=== PATIENT | female | born 1975 | race Caucasian/White ===

== ENCOUNTER 2017-12-26 17:08 | Observation (INO) | payer OTHER ==
[2017-12-26 17:08] VITALS: BMI 35.2
[2017-12-26 17:39] LABS: BASO # 0.04 K/mm3 (0.0-2.0); BASO % 0.5 % (0.0-3.0); EOS # 0.1 (0.0-0.7); EOS % 1.3 % (1.5-5.0); GRAN # 4.37 (1.4-6.5); GRAN % 57.2 % (50.0-68.0); HEMOGLOBIN 10.8 g/dL (12.0-16.0); LYMPH # 2.5 (1.2-3.4); LYMPH % 32.9 % (22.0-35.0); MEAN CELL VOLUME 76.8 fl (80.0-105.0); MEAN CORPUSCULAR HEMOGLOBIN 23.4 pg (25.0-35.0); MEAN CORPUSCULAR HGB CONC 30.4 g/dl (31.0-37.0); MEAN PLATELET VOLUME 10.4 fl (7.0-11.0); MONO # 0.6 (0.1-0.6); MONO % 8.1 % (1.0-6.0); RBC 4.62 10^6/uL (3.5-6.1); RED CELL DISTRIBUTION WIDTH 16.4 % (11.5-14.5); WHITE BLOOD COUNT 7.6 10^3/ul (4.5-11.0)
[2017-12-26 17:51] LABS: ALB/GLOB RATIO 1.5 (1.1-1.8); ALBUMIN 4.5 g/dL (3.0-4.8); ALT/SGPT 23 U/L (7-56); AST/SGOT 21 U/L (14-36); BLOOD UREA NITROGEN 10 mg/dL (7-21); CALCIUM 10.2 mg/dL (8.4-10.5); GFR AFRICAN-AMERICAN > 60; GFR NON-AFRICAN AMERICAN > 60
[2017-12-26 18:15] LABS: TROPONIN I < 0.01 ng/mL
--- NOTE | 2017-12-26 19:04 | ED PDOC ---
Arrival/HPI - General Historian: Family <Tye Rasheed - Last Filed: 12/26/17 19:39> <Celso Gee - Last Filed: 12/26/17 22:15> - General Chief Complaint: Syncope Time Seen by Provider: 12/26/17 17:12 - History of Present Illness Narrative History of Present Illness (Text): 12/26/17 18:59 Patient is a 42F with a pmh of HTN, HLD comes to the ED after being found outside of the hospital unresponsive. Today the patient had 4 episodes of syncope which prompted her to come to the ED. She had been at home with her daughter today and she reportedly passed out 3 times. She appeared confused and crying after each event. They lasted apporxmently 5-15m per event. Yesterday her daughter reports that she would be staring at her with a blank stare and later not recalling that they were talking. Patient denies any chest pain, SOB, fever, chills. (Tye Rasheed) Past Medical History - Past History Past History: No Previous - Infectious Disease Hx of Infectious Diseases: None - Tetanus Immunization Tetanus Immunization: Unknown - Cardiac Hx Hypertension: Yes - Pulmonary Hx Respiratory Disorders: No - Neurological Hx Neurological Disorder: No - HEENT Hx HEENT Disorder: No - Renal Hx Renal Disorder: No - Endocrine/Metabolic Hx Endocrine Disorders: No - Hematological/Oncological Hx Anemia: Yes - Integumentary Hx Dermatological Disorder: No - Musculoskeletal/Rheumatological Hx Falls: Yes - Gastrointestinal Hx Gastrointestinal Disorders: No Other/Comment: H pilory - Genitourinary/Gynecological Hx Genitourinary Disorders: No - Psychiatric Hx Psychophysiologic Disorder: No Hx Substance Use: No - Past Surgical History Past Surgical History: No Previous - Surgical History Hx Section: Yes - Anesthesia Hx Anesthesia: Yes Hx Anesthesia Reactions: No Hx Malignant Hyperthermia: No - Suicidal Assessment Feels Threatened In Home Enviroment: No <Tye Rasheed - Last Filed: 12/26/17 19:39> Family/Social History Family/Social History: Unknown Family HX Smoking Status: Never Smoked Hx Alcohol Use: No Hx Substance Use: No Hx Substance Use Treatment: No <Tye Rasheed - Last Filed: 12/26/17 19:39> Allergies/Home Meds <Tye Rasheed - Last Filed: 12/26/17 19:39> <Celso Gee - Last Filed: 12/26/17 22:15> Allergies/Adverse Reactions: Allergies No Known Allergies Allergy (Verified 12/26/17 17:16) Home Medications: Home Meds Medication Instructions Recorded Confirmed No Known Home Med 12/26/17 12/26/17 Review of Systems - Review of Systems Constitutional: Normal Eyes: Normal ENT: Normal Respiratory: Normal Cardiovascular: Syncope Gastrointestinal: Normal Genitourinary Female: Normal Musculoskeletal: Normal Skin: Normal Neurological: Normal Endocrine: Normal Hemo/Lymphatic: Normal Psychiatric: Normal <Tye Rasheed - Last Filed: 12/26/17 19:39> Physical Exam Temperature: Afebrile Blood Pressure: Normal Pulse: Tachycardic Respiratory Rate: Normal Finger Stick Blood Glucose: 92 <Tye Rasheed - Last Filed: 12/26/17 19:39> Vital Signs Pulse Resp BP Pulse Ox 12/26/17 17:12 100 H 18 143/94 H 100 Medical Decision Making <Tye Rasheed - Last Filed: 12/26/17 19:39> <Celso Gee - Last Filed: 12/26/17 22:15> ED Course and Treatment: 12/26/17 19:39 42F with multiple episodes of syncope, possible seizure etiology * ekg * cxr * CT head w/o contrast (Tye Rasheed) 12/26/17 22:00 EKG: Ordered, reviewed, and independently interpreted the EKG. Rate : 89 BPM Rhythm : NSR Interpretation : Normal intervals, normal axis (Celso Gee) - Lab Interpretations Lab Results: 12/26/17 17:27 12/26/17 17:27 Lab Results 12/26/17 19:30: Urine Opiates Screen Negative, Urine Methadone Screen Negative, Ur Barbiturates Screen Negative, Ur Phencyclidine Scrn Negative, Ur Amphetamines Screen Negative, U Benzodiazepines Scrn Negative, U Oth Cocaine Metabols Negative, U Cannabinoids Screen Negative 12/26/17 17:27: WBC 7.6 D, RBC 4.62, Hgb 10.8 L, Hct 35.5 L, MCV 76.8 L, MCH 23.4 L, MCHC 30.4 L, RDW 16.4 H, Plt Count 405, MPV 10.4, Gran % 57.2, Lymph % ( Auto) 32.9, Gentry % (Auto) 8.1 H, Eos % (Auto) 1.3 L, Baso % (Auto) 0.5, Gran # 4.37, Lymph # (Auto) 2.5, Gentry # (Auto) 0.6, Eos # (Auto) 0.1, Baso # (Auto) 0.04 12/26/17 17:27: Sodium 144, Potassium 3.7, Chloride 105, Carbon Dioxide 28, Anion Gap 14, BUN 10, Creatinine 0.5 L, Est GFR ( Amer) > 60, Est GFR ( Non-Af Amer) > 60, Random Glucose 97, Calcium 10.2, Magnesium 2.2, Total Bilirubin 0.5, AST 21, ALT 23, Alkaline Phosphatase 54, Lactate Dehydrogenase 457, Total Creatine Kinase 47, Troponin I < 0.01, Total Protein 7.5, Albumin 4.5 , Globulin 3.0, Albumin/Globulin Ratio 1.5, Prolactin Pending - RAD Interpretation Radiology Orders: 12/26/17 17:23 HEAD W/O CONTRAST [CT] Stat 12/26/17 20:06 HEAD W/CONTRAST [CT] Stat - PA / SET UP MACHINIST / Resident Statement MILLY has reviewed & agrees with the documentation as recorded. MILLY has examined the patient and agrees with the treatment plan. <Tye Rasheed - Last Filed: 12/26/17 19:39> - PA / SET UP MACHINIST / Resident Statement MILLY has reviewed & agrees with the documentation as recorded. <Celso Gee - Last Filed: 12/26/17 22:15> Disposition/Present on Arrival - Present on Arrival Any Indicators Present on Arrival: No History of DVT/PE: No History of Uncontrolled Diabetes: No Urinary Catheter: No History of Decub. Ulcer: No History Surgical Site Infection Following: None <Tye Rasheed - Last Filed: 12/26/17 19:39> - Disposition Have Diagnosis and Disposition been Completed?: Yes Disposition Time: 22:14 Patient Plan: Admission, Telemetry <Celso Gee - Last Filed: 12/26/17 22:15> - Disposition Diagnosis: Syncope, Near syncope Disposition: HOSPITALIZED Condition: FAIR Discharge Instructions (ExitCare): Syncope (ED) Referrals: Cliff Jimenez MD [Primary Care Provider] - Follow up with primary Forms: [employer] (Portuguese)
--- NOTE | 2017-12-26 19:16 | CARD ---
APPROVED REPORT EKG Measurement Heart [id number] ID [id number] <Conclusion> Normal sinus rhythm Normal ECG
[2017-12-26 20:09] LABS: BARBITURATES, UR NEGATIVE (NEGATIVE); BENZODIAZEPINES, UR NEGATIVE (NEGATIVE); OPIATES, UR NEGATIVE (NEGATIVE); PHENCYCLIDINE, UR NEGATIVE (NEGATIVE)
[2017-12-26] MEDS ORDERED: Iohexol 350 MG/100 ML VIAL ONE (20:48)
--- NOTE | 2017-12-26 20:50 | CT ---
EXAM: CT Head Without Intravenous Contrast EXAM DATE/TIME: 12/26/2017 5:23 PM CLINICAL HISTORY: The patient age is 42 years old and is female; Signs and symptoms; Dizziness; Additional info: Syncope Facility exam id and description: Ct heads head w/o contrast TECHNIQUE: Axial computed tomography images of the head/brain without intravenous contrast. All CT scans at this facility use one or more dose reduction techniques, viz.: automated exposure control; ma/kV adjustment per patient size (including targeted exams where dose is matched to indication; i.e. head); or iterative reconstruction technique. Coronal and sagittal reformatted images were created and reviewed. COMPARISON: No relevant prior studies available. FINDINGS: Brain: There is mild atrophy of the frontal sulci. The white-wilkinson differentiation is preserved demonstrating no acute territorial type infarct. No acute intracranial hemorrhage is seen. Artifact limits evaluation of the base of the brain. Midline shift: There is no midline shift. Ventricles: There is a small cavum septum pellucidum variant. No ventriculomegaly. Bones/joints: The calvarium demonstrates no evidence for a depressed fracture. Soft tissues: No acute abnormality. Sinuses: A small mucous retention cyst or polyp is visualized within the right frontal sinus. Mastoid air cells: No mastoid effusion. IMPRESSION: 1. No acute intracranial abnormality. 2. There is mild atrophy of the frontal sulci. 3. Incidental/non-acute findings are described above.
--- NOTE | 2017-12-26 22:56 | CT ---
EXAM: CT Head With Intravenous Contrast EXAM DATE/TIME: 12/26/2017 8:06 PM CLINICAL HISTORY: The patient age is 42 years old and is female; Signs and symptoms; Altered mental status/memory loss and dizziness; Additional info: AMS, syncope Facility exam id and description: Ct headc head w/contrast TECHNIQUE: Axial computed tomography images of the head/brain with intravenous contrast. All CT scans at this facility use one or more dose reduction techniques, viz.: automated exposure control; ma/kV adjustment per patient size (including targeted exams where dose is matched to indication; i.e. head); or iterative reconstruction technique. Coronal and sagittal reformatted images were created and reviewed. CONTRAST: 94 mL of omni 350 administered intravenously. COMPARISON: CT - HEAD W/O CONTRAST 2017-12-26 19:42 FINDINGS: Brain: 2 linear foci of enhancement are identified within the right frontal lobe, consistent with prominent draining veins or developmental venous anomalies. There is mild atrophy of the frontal sulci. The white-wilkinson differentiation is preserved demonstrating no acute territorial type infarct. No additional abnormal enhancing intracranial mass is visualized. Evaluation for hemorrhage is limited by the presence of intravenous contrast. Ventricles: There is a small cavum septum pellucidum variant. No ventriculomegaly. Bones/joints: No acute fracture. Soft tissues: No acute abnormality. Sinuses: A small mucous retention cyst or polyp is visualized within the right frontal sinus. Mastoid air cells: No mastoid effusion. IMPRESSION: 1. 2 linear foci of enhancement are identified within the right frontal lobe, consistent with prominent draining veins or developmental venous anomalies. 2. Incidental/non-acute findings are described above. 3. If further evaluation is clinically indicated, an MRI of the brain is recommended.
--- NOTE | 2017-12-27 00:18 | CP.PCM.HP ---
Addendum entered and electronically signed by Tony Redmond DO 12/27/17 00:55 : - CT without contrast showed no acute intracranial abnormality, mild atrophy of the frontal sulci - CT with contrast showed 2 linear foci of enhancement are identified within the right frontal lobe, consistent with prominent draining veins or developmental venous anomalies. Original Note: <Tony Redmond - Last Filed: 12/27/17 00:06> History of Present Illness - History of Present Illness History of Present Illness: CC: syncope Pt is a 42 yo F with PMH of HLD presents to ED due multiple syncopal episodes on day of admission. Pt's daughter is at bedside to provid history as pt is Turkish speaking. Daughter states that she witnessed her mother have 4 syncopal episodes at home today. During those episodes, the patient was either caught by her daughter or was in bed, thus no fall or trauma took place. Duration of syncopal episodes ranged from 5-30 minutes. Daughter stated that on 1 or 2 of the syncopal episodes she thinks she saw her mother seizing, but is unsure. Pt denied any tongue biting or loss of bladder/bowel function. Pt states that she experienced blurred vision after each episode and things appeared white. Daughter also states that yesterday her mother had a period where she appeared to be staring blankly for about 5 minutes. Afterwards, the patient had no recollection of the event. Pt had another syncopal episode outside of the hospital prior to arrival and another syncopal episode while the ED. These events were witnessed and no seizure activity was noted. After each event, patient was confused and emotional/crying. Pt denied CP, SOB, n/v/d, abdominal pain, fever, chills, PAZ, or gait imbalance. PMD: Ghobraiel PMH: HLD Surg: Denied All: Denied FHx: DM, HTN, HLD, CVA SH: Denied tobacco, EtOH, and illicit drug use Present on Admission - Present on Admission Any Indicators Present on Admission: No Review of Systems - Review of Systems Review of Systems: 12 point ROS reviewed and is negative other than what is stated in HPI. Past Patient History - Infectious Disease Hx of Infectious Diseases: None - Tetanus Immunizations Tetanus Immunization: Unknown - Past Medical History & Family History Past Medical History?: Yes - Past Social History Smoking Status: Never Smoked - CARDIAC Hx Hypertension: Yes - PULMONARY Hx Respiratory Disorders: No - NEUROLOGICAL Hx Neurological Disorder: No - HEENT Hx HEENT Problems: No - RENAL Hx Chronic Kidney Disease: No - ENDOCRINE/METABOLIC Hx Endocrine Disorders: No - HEMATOLOGICAL/ONCOLOGICAL Hx Anemia: Yes - INTEGUMENTARY Hx Dermatological Problems: No - MUSCULOSKELETAL/RHEUMATOLOGICAL Hx Falls: Yes - GASTROINTESTINAL Hx Gastrointestinal Disorders: No Other/Comment: H pilory - GENITOURINARY/GYNECOLOGICAL Hx Genitourinary Disorders: No - PSYCHIATRIC Hx Psychophysiologic Disorder: No Hx Substance Use: No - SURGICAL HISTORY Hx Section: Yes - ANESTHESIA Hx Anesthesia: Yes Hx Anesthesia Reactions: No Hx Malignant Hyperthermia: No Meds Allergies/Adverse Reactions: Allergies Allergy/AdvReac Type Severity Reaction Status Date / Time No Known Allergies Allergy Verified 12/26/17 17:16 Physical Exam - Constitutional Appears: No Acute Distress - Head Exam Head Exam: NORMAL INSPECTION - Eye Exam Eye Exam: Normal appearance Pupil Exam: NORMAL ACCOMODATION - ENT Exam ENT Exam: Mucous Membranes Moist - Neck Exam Neck exam: Positive for: Normal Inspection - Respiratory Exam Respiratory Exam: Clear to Auscultation Bilateral. absent: Rales, Rhonchi, Wheezes - Cardiovascular Exam Cardiovascular Exam: RRR, +S1, +S2. absent: Diastolic murmur, Gallop, Rubs, Systolic Murmur - GI/Abdominal Exam GI & Abdominal Exam: Soft. absent: Guarding, Rebound, Tenderness - Extremities Exam Extremities exam: Positive for: normal inspection - Back Exam Back exam: NORMAL INSPECTION - Neurological Exam Neurological exam: Alert, CN II-XII Intact, Oriented x3, Reflexes Normal Additional comments: Romberg positive. Pronator drift negative. Dysdiadodyskinesia negative. No ataxia noted on ecvmzx-uh-yfko test. Addis-hallpike negative. - Psychiatric Exam Psychiatric exam: Normal Affect, Normal Mood - Skin Skin Exam: Dry, Intact, Normal Color, Warm Results - Vital Signs Recent Vital Signs: Last Vital Signs Temp Pulse 73 12/26/17 23:53 Resp 17 12/26/17 23:53 BP 108/66 12/26/17 23:53 Pulse Ox 100 12/26/17 23:53 - Labs Result Diagrams: 12/26/17 17:27 12/26/17 17:27 Assessment & Plan - Assessment and Plan (Free Text) Assessment: 42 yo F with PMH of HLD admitted for multiple syncopal episodes. Plan: 1. Syncope - Questionable seizure vs. vasovagal vs. cardiac vs. psychogenic - CT without contrast showed - CT with contrast showed - Orthostatics negative (Supine 111/70, Sitting 120/81, Standing 122/84) - UDS negative - Troponin negative x1, will trend x2 - Brain MRI ordered - Carotid US ordered - Echo ordered - EEG ordered - Zofran for nausea - Neurochecks - Fall and aspiration precautions - Neuro consulted - Cardio consulted GI/DVT PPx - Protonix - SCDs Pt seen and discussed in detail with Dr. Gray. Jay Redmond, PGY1 <Hero Gray - Last Filed: 12/27/17 02:44> Results - Vital Signs Recent Vital Signs: Last Vital Signs Temp 98.2 F 12/27/17 01:11 Pulse 79 12/27/17 01:24 Resp 18 12/27/17 01:11 BP 121/74 12/27/17 01:11 Pulse Ox 100 12/27/17 00:48 - Labs Result Diagrams: 12/26/17 17:27 12/26/17 17:27 Labs: Laboratory Results - last 24 hr 12/27/17 00:30 Troponin I < 0.01 Attending/Attestation - Attestation I have personally seen and examined this patient.: Yes I have fully participated in the care of the patient.: Yes I have reviewed all pertinent clinical information: Yes Notes (Text): 12/27/17 02:43 Patient was seen when she was in room # 375-02. History obtained with help of daughter Nelia. Agree with history, physical examination, assessment and plan. Following should be noted. Syncope. Possible seizure. Obesity. History of . History of difficulty in hearing in both ears on and off. History of sinusitits. History of seasonal allergies. History of anemia. History of menorrhagia. History of urinary tract infection x 4. History of bilateral lower abdominal pain for one year. History of hemorrhoids. History of contipation. History of headaches. Family history of diabetes mellitus. Family history of CVA. Family history of HLD. Family history of HTN.
[2017-12-27] MEDS: Pantoprazole 40 mg EC Tab PO SCH (05:41)
[2017-12-27 07:08] LABS: HEMOGLOBIN 9.1 g/dL (12.0-16.0); MEAN CELL VOLUME 76.7 fl (80.0-105.0); MEAN CORPUSCULAR HEMOGLOBIN 23.3 pg (25.0-35.0); MEAN CORPUSCULAR HGB CONC 30.3 g/dl (31.0-37.0); MEAN PLATELET VOLUME 9.4 fl (7.0-11.0); RBC 3.91 10^6/uL (3.5-6.1); RED CELL DISTRIBUTION WIDTH 16.5 % (11.5-14.5); WHITE BLOOD COUNT 5.8 10^3/ul (4.5-11.0)
[2017-12-27 07:29] LABS: TROPONIN I < 0.01 ng/mL
[2017-12-27 07:35] LABS: ALB/GLOB RATIO 1.4 (1.1-1.8); ALBUMIN 3.7 g/dL (3.0-4.8); ALT/SGPT 22 U/L (7-56); AST/SGOT 31 U/L (14-36); BLOOD UREA NITROGEN 6 mg/dL (7-21); CALCIUM 9.4 mg/dL (8.4-10.5); GFR AFRICAN-AMERICAN > 60; GFR NON-AFRICAN AMERICAN > 60
[2017-12-27] MEDS ORDERED: Gadodiamide 287 MG/ML VIAL (15ML) IV ONE (08:33)
--- NOTE | 2017-12-27 09:06 | MRI ---
PROCEDURE: MRI BRAIN WITH AND WITHOUT CONTRAST HISTORY: syncope, questionable seizure COMPARISON: None. TECHNIQUE: Multiplanar, multisequence MR images of the brain were obtained with (Omniscan 15 cc intravenous) and without intravenous contrast enhancement. FINDINGS: HEMORRHAGE: None DWI: No evidence of an acute or early subacute infarction. BRAIN PARENCHYMA: Intrinsic signal throughout the wilkinson and white matter structures above below the tentorium includes appears within normal limits including the brainstem. There is no mass effect, parenchymal edema or loss of the corticomedullary differentiation. Midline brain anatomy appears within normal limits including the corpus callosum, brainstem and craniocervical junction. There is a probable arachnoid cyst occupying the sella versus empty sella. ENHANCEMENT: No abnormal intracranial enhancement. VENTRICLES: Unremarkable. No hydrocephalus. CRANIUM: Unremarkable. ORBITS: Grossly unremarkable. PARANASAL SINUSES/MASTOIDS: Limited but multifocal mucosal inflammatory changes bilateral ethmoid air cells. VASCULAR SYSTEM: Skull base flow voids intact. OTHER FINDINGS: None . IMPRESSION: 1. Normal signal intensity is appreciate throughout the wilkinson and white matter structures above below the tentorium including throughout the brainstem. No abnormal intracranial enhancement. 2. No evidence to suggest mesial temporal sclerosis bilaterally. 3. Sella arachnoid cyst versus empty sella.
[2017-12-27 11:58] LABS: PROLACTIN 21.4 ng/mL (3.0-18.9)
[2017-12-27 12:14] LABS: IRON 27 ug/dL (45-180)
[2017-12-27 12:24] LABS: % IRON SATURATION 6 % (20-55); TOTAL IRON BINDING CAPACITY 421 ug/dL (265-497)
--- NOTE | 2017-12-27 12:39 | CP.PCM.CON ---
History of Present Illness - History of Present Illness History of Present Illness: Neurology Consultation Note: Mrs. Todd is a 42-year-old woman with a past medical history of HLD, who was brought in by her daughter for multiple syncopal epidoses associated with abnormal behavior. The daughter states that she witnessed her mother have 4 syncopal episodes at home, and she continued to be confused after these events. She was caught be her daughter and did not injure herself. According to the family, she has been having events like this, but she usually returns to normal right away, recently, she takes longer. She has had a headache, and complains of blurred vision after each episode along with white/hazy vision. She had some episodes with shaking as well that were concerning for possible seizure. Review of Systems - Review of Systems All systems: reviewed and no additional remarkable complaints except Past Patient History - Infectious Disease Hx of Infectious Diseases: None - Tetanus Immunizations Tetanus Immunization: Unknown - Past Medical History & Family History Past Medical History?: Yes - Past Social History Smoking Status: Never Smoked - CARDIAC Hx Cardiac Disorders: Yes Hx Hypercholesterolemia: Yes Hx Hypertension: Yes Hx Peripheral Vascular Disease: No - PULMONARY Hx Respiratory Disorders: No (denies) - NEUROLOGICAL Hx Neurological Disorder: Yes (syncope) - HEENT Hx HEENT Problems: No (denies) - RENAL Hx Chronic Kidney Disease: No (denies) - ENDOCRINE/METABOLIC Hx Endocrine Disorders: No (denies) - HEMATOLOGICAL/ONCOLOGICAL Hx Blood Disorders: Yes Hx Anemia: Yes - INTEGUMENTARY Hx Dermatological Problems: No (denies) - MUSCULOSKELETAL/RHEUMATOLOGICAL Hx Falls: Yes - GASTROINTESTINAL Hx Gastrointestinal Disorders: No Other/Comment: H pilory - GENITOURINARY/GYNECOLOGICAL Hx Genitourinary Disorders: No (denies) - PSYCHIATRIC Hx Substance Use: No - SURGICAL HISTORY Hx Surgeries: Yes (c .section /tubal ligation) Other/Comment: - ANESTHESIA Hx Anesthesia: Yes Hx Anesthesia Reactions: No Hx Malignant Hyperthermia: No Meds Allergies/Adverse Reactions: Allergies Allergy/AdvReac Type Severity Reaction Status Date / Time No Known Allergies Allergy Verified 12/26/17 17:16 - Medications Medications: Current Medications Ondansetron HCl (Zofran Tab) 4 mg PO Q8H PRN PRN Reason: Nausea/Vomiting Pantoprazole Sodium (Protonix Ec Tab) 40 mg PO 0600 SCARLET Last Admin: 12/27/17 05:41 Dose: 40 mg Physical Exam - Constitutional Appears: Well - Head Exam Head Exam: ATRAUMATIC, NORMAL INSPECTION, NORMOCEPHALIC - Eye Exam Eye Exam: EOMI, Normal appearance, PERRL - Cardiovascular Exam Cardiovascular Exam: REGULAR RHYTHM - GI/Abdominal Exam GI & Abdominal Exam: Normal Bowel Sounds, Soft. absent: Tenderness - Rectal Exam Rectal Exam: Deferred - Neurological Exam Neurological exam: Alert, CN II-XII Intact, Normal Gait, Oriented x3, Reflexes Normal Additional comments: Left shoulder pain, weakness on hand billing supervisor. Results - Vital Signs Recent Vital Signs: Last Vital Signs Temp 99.4 F 12/27/17 06:00 Pulse 75 12/27/17 06:00 Resp 20 12/27/17 06:00 BP 102/59 L 12/27/17 06:00 Pulse Ox 99 12/27/17 06:00 - Labs Result Diagrams: 12/27/17 06:30 12/27/17 06:30 Labs: Laboratory Results - last 24 hr 12/27/17 12/27/17 12/27/17 00:30 06:30 06:30 WBC 5.8 D RBC 3.91 Hgb 9.1 L Hct 30.0 L MCV 76.7 L MCH 23.3 L MCHC 30.3 L RDW 16.5 H Plt Count 307 MPV 9.4 Sodium 141 Potassium 4.4 Chloride 109 H Carbon Dioxide 25 Anion Gap 12 BUN 6 L Creatinine 0.5 L Est GFR ( Amer) > 60 Est GFR (Non-Af Amer) > 60 Random Glucose 96 Calcium 9.4 Phosphorus 3.6 Magnesium 2.1 Iron TIBC % Saturation Total Bilirubin 0.2 AST 31 ALT 22 Alkaline Phosphatase 41 Troponin I < 0.01 < 0.01 Total Protein 6.3 Albumin 3.7 Globulin 2.6 Albumin/Globulin Ratio 1.4 12/27/17 12:00 WBC RBC Hgb Hct MCV MCH MCHC RDW Plt Count MPV Sodium Potassium Chloride Carbon Dioxide Anion Gap BUN Creatinine Est GFR ( Amer) Est GFR (Non-Af Amer) Random Glucose Calcium Phosphorus Magnesium Iron 27 L TIBC 421 % Saturation 6 L Total Bilirubin AST ALT Alkaline Phosphatase Troponin I Total Protein Albumin Globulin Albumin/Globulin Ratio Assessment & Plan (1) Syncope Assessment and Plan: Some of these events are concerning for seizure since she continues to be confused for a prolonged period of time and there were episodes of shaking. I recommend the followin. MRI brain with and without contrast 2. EEG awake and drowsy for 1 hours 3. Telemetry 4. If telemetry is normal, consult cardiology for loop recorder (Linq) 5. PT/OT eval 6. Fluids with NS at 100 mL/hr 7. Case management consult Thank you. Status: Acute Priority: High
[2017-12-27 16:53] LABS: FERRITIN 6.7 ng/mL
--- NOTE | 2017-12-27 16:59 | CARD ---
APPROVED REPORT EXAM: Two-dimensional and M-mode echocardiogram with Doppler and color Doppler. INDICATION Syncope 2D DIMENSIONS Left Atrium (2D)3.7 (1.6-4.0cm)IVSd0.8 (0.7-1.1cm) LVDd4.0 (3.9-5.9cm)PWd0.8 (0.7-1.1cm) LVDs2.7 (2.5-4.0cm)FS (%) 32.3 % LVEF (%)61.2 (>50%) M-Mode DIMENSIONS Aortic Root2.50 (2.2-3.7cm)Aortic Cusp Exc.1.60 (1.5-2.0cm) Aortic Valve AoV Peak Cvircaff756.0cm/sAoV VTI34.1cmAO Peak GR.12mmHg LVOT Peak Mjydqwoe710.0cm/sLVOT VTI26.30cmAO Mean GR.7mmHg Mitral Valve MV E Jagqdbxz90.8cm/sMV A Tcruxpnd88.7cm/sE/A ratio1.3 TDI Lateral E' Peak V18.40cm/sMedial E' Peak V7.21cm/sE/Lateral E'5.1 E/Medial E'13.0 Pulmonary Valve PV Peak Xdsuoxrq02.9cm/sPV Peak Grad.4mmHg Tricuspid Valve TR Peak Twbmzhps578ux/sRAP YOGZXOQT40nqAeTL Peak Gr.29mmHg [id number] LEFT VENTRICLE The left ventricle is normal size. There is normal left ventricular wall thickness. The left ventricular function is normal. The left ventricular ejection fraction is within the normal range. There is normal LV segmental wall motion. The left ventricular diastolic function is normal. RIGHT VENTRICLE The right ventricle is normal size. There is normal right ventricular wall thickness. The right ventricular systolic function is normal. ATRIA The left atrium size is normal. The right atrium size is normal. AORTIC VALVE The aortic valve is normal in structure. No aortic regurgitation is present. There is no aortic valvular stenosis. MITRAL VALVE The mitral valve is normal in structure. Mitral regurgitation is trace. TRICUSPID VALVE The tricuspid valve is normal in structure. There is mild tricuspid regurgitation. There is mild pulmonary hypertension. GREAT VESSELS The aortic root is normal in size. The IVC is normal in size and collapses >50% with inspiration. <Conclusion> The left ventricle is normal size. There is normal left ventricular wall thickness. The left ventricular function is normal. The left ventricular ejection fraction is within the normal range. There is normal LV segmental wall motion. The left ventricular diastolic function is normal. There is mild tricuspid regurgitation. There is mild pulmonary hypertension.
[2017-12-27 17:23] LABS: FOLATE > 20.0 ng/mL
[2017-12-27 20:00] LABS: URINE BILIRUBIN NEGATIVE (NEGATIVE); URINE BLOOD NEGATIVE (NEGATIVE); URINE GLUCOSE (UA) NEGATIVE (NEGATIVE); URINE LEUKOCYTE ESTERASE NEGATIVE Leu/uL (NEGATIVE); URINE PROTEIN NEGATIVE mg/dL (<30 mg/dL); URINE UROBILINOGEN 0.2 E.U./dL (<1 E.U./dL)
[2017-12-27 20:04] LABS: URINE COLOR STRAW (YELLOW)
[2017-12-27 20:05] LABS: URINE APPEARANCE SL CLOUDY (CLEAR); URINE BACTERIA MANY (NEG); URINE RBC NEGATIVE /hpf (0-2); URINE WBC 0 - 2 /hpf (0-6)
--- NOTE | 2017-12-27 20:31 | US ---
PROCEDURE: Bilateral carotid artery duplex ultrasound HISTORY: Carotid stenosis syncope PHYSICIAN(S): Raffi Mosquera MD. TECHNIQUE: Duplex sonography and color-flow Doppler were used to evaluate the carotid bifurcations and limited segments of the vertebral arteries bilaterally. FINDINGS: There is mild intimal-medial thickening noted at the carotid bifurcations bilaterally. The peak systolic velocity in the proximal right internal carotid artery is 102 cm/sec. This corresponds to a 0-19 percent proximal right ICA stenosis. Normal systolic velocities are noted in the proximal right external carotid artery. There is antegrade flow in the right vertebral artery. The peak systolic velocity in the proximal left internal carotid artery is 127 cm/sec. This corresponds to a 0-19 percent proximal left ICA stenosis. Normal systolic velocities are noted in the proximal left external carotid artery. There is antegrade flow in the left vertebral artery. IMPRESSION: 1. Bilateral 0-19 percent proximal ICA stenoses. 2. Antegrade flow in both vertebral arteries.
[2017-12-28] MEDS: Pantoprazole 40 mg EC Tab PO SCH (05:24)
[2017-12-28] MEDS ORDERED: Sodium Chloride 0.9% 500 ML IV STA (06:16)
[2017-12-28 07:03] LABS: HEMOGLOBIN 8.9 g/dL (12.0-16.0); MEAN CELL VOLUME 76.3 fl (80.0-105.0); MEAN CORPUSCULAR HEMOGLOBIN 23.5 pg (25.0-35.0); MEAN CORPUSCULAR HGB CONC 30.8 g/dl (31.0-37.0); MEAN PLATELET VOLUME 9.9 fl (7.0-11.0); RBC 3.79 10^6/uL (3.5-6.1); RED CELL DISTRIBUTION WIDTH 16.4 % (11.5-14.5); WHITE BLOOD COUNT 5.2 10^3/ul (4.5-11.0)
[2017-12-28 07:38] LABS: ALB/GLOB RATIO 1.4 (1.1-1.8); ALBUMIN 3.5 g/dL (3.0-4.8); ALT/SGPT 13 U/L (7-56); AST/SGOT 16 U/L (14-36); BLOOD UREA NITROGEN 12 mg/dL (7-21); CALCIUM 9.2 mg/dL (8.4-10.5); GFR AFRICAN-AMERICAN > 60; GFR NON-AFRICAN AMERICAN > 60
[2017-12-28] MEDS ORDERED: Sodium Chloride 0.9% 1,000 ML IV SCH (09:30)
[2017-12-28 11:26] LABS: PH,URINE 5.5 (4.7-8.0); URINE BILIRUBIN NEGATIVE (NEGATIVE); URINE BLOOD NEGATIVE (NEGATIVE); URINE GLUCOSE (UA) NEGATIVE (NEGATIVE); URINE LEUKOCYTE ESTERASE NEGATIVE Leu/uL (NEGATIVE); URINE PROTEIN NEGATIVE mg/dL (<30 mg/dL); URINE UROBILINOGEN 0.2 E.U./dL (<1 E.U./dL)
[2017-12-28 11:32] LABS: URINE APPEARANCE CLEAR (CLEAR); URINE COLOR YELLOW (YELLOW)
--- NOTE | 2017-12-28 12:46 | CP.PCM.PN ---
Subjective - Date & Time of Evaluation Date of Evaluation: 12/28/17 Time of Evaluation: 12:42 - Subjective Subjective: Ms. romero was seen and examined at the bedside. She is alert, oriented in all spheres. She denies any headache, dizziness, lightheadedness, blurred vision, diplopia, nausea, or vomiting. She is able to follow all commands. She further states of consuming very little amount of water for the past several months due to the environmental temp. very cold and for the past few weeks was fasting due to confucianist. Her blood pressure has been below 100 and currently on IVF. CTA of the head showed minimal 0-19 proximal stenoses of the bilateral ICA. MRI is unremarkable. EEG showed epileptiform activity in her temporal area. There was no untoward events overnight. Objective - Vital Signs/Intake and Output Vital Signs (last 24 hours): Temp Pulse Resp BP Pulse Ox 98.4 F 78 18 99/64 L 98 12/28/17 08:17 12/28/17 08:17 12/28/17 08:17 12/28/17 08:17 12/28/17 08:17 Intake and Output: 12/28/17 12/28/17 06:59 18:59 Intake Total 780 480 Output Total 780 Balance 0 480 - Medications Medications: Current Medications Sodium Chloride (Sodium Chloride 0.9%) 1,000 mls @ 100 mls/hr IV .Q10H [facility] Last Admin: 12/28/17 09:51 Dose: 100 mls/hr Ondansetron HCl (Zofran Tab) 4 mg PO Q8H PRN PRN Reason: Nausea/Vomiting Pantoprazole Sodium (Protonix Ec Tab) 40 mg PO 0600 [facility] Last Admin: 12/28/17 05:24 Dose: 40 mg - Labs Labs: 12/28/17 06:00 12/28/17 06:00 - Constitutional Appears: No Acute Distress - Head Exam Head Exam: NORMAL INSPECTION - Neurological Exam Neurological Exam: Alert, Awake, Oriented x3 Neuro motor strength exam: Left Upper Extremity: 5, Right Upper Extremity: 5, Left Lower Extremity: 5, Right Lower Extremity: 5 Additional comments: Alert, oriented x 3. Follow simple commands, Sensation is intact. Assessment and Plan (1) Near syncope Assessment & Plan: Case discussed with Dr. Glez, continue all current medical and physical therapy. Recommend to start on depakote 500 mg PO Q 12. Recommend to increase PO intake especially fluid. May discharge patient today with AED medication. Status: Acute
[2017-12-28] MEDS ORDERED: Divalproex 500 mg DR(BID formulation) PO SCH (13:45)
[2017-12-28 15:00] VITALS: BP 117/70; RESP 20; TEMP 98.1
[2017-12-28 16:16] VITALS: PULSE 92
[2017-12-28 16:44] VITALS: O2SAT 99
--- NOTE | 2017-12-28 20:09 | CP.PCM.DIS ---
<AmineMargarita - Last Filed: 12/28/17 19:40> Provider - Provider Date of Admission: 12/26/17 22:15 Attending physician: Yuni Bhakta MD Primary care physician: Cliff Jimenez MD Consults: Neuro: Amaris Time Spent in preparation of Discharge (in minutes): 45 Diagnosis - Discharge Diagnosis (1) Orthostasis Status: Acute Priority: High (2) Seizure Status: Acute Priority: High (3) Syncope Status: Acute Priority: High Hospital Course - Lab Results Lab Results: Most Recent Lab Values WBC 5.2 10^3/ul (4.5-11.0) 12/28/17 06:00 RBC 3.79 10^6/uL (3.5-6.1) 12/28/17 06:00 Hgb 8.9 g/dL (12.0-16.0) L 12/28/17 06:00 Hct 28.9 % (36.0-48.0) L 12/28/17 06:00 MCV 76.3 fl (80.0-105.0) L 12/28/17 06:00 MCH 23.5 pg (25.0-35.0) L 12/28/17 06:00 MCHC 30.8 g/dl (31.0-37.0) L 12/28/17 06:00 RDW 16.4 % (11.5-14.5) H 12/28/17 06:00 Plt Count 307 10^3/uL (120.0-450.0) 12/28/17 06:00 MPV 9.9 fl (7.0-11.0) 12/28/17 06:00 Gran % 57.2 % (50.0-68.0) 12/26/17 17:27 Lymph % (Auto) 32.9 % (22.0-35.0) 12/26/17 17:27 Bladen % (Auto) 8.1 % (1.0-6.0) H 12/26/17 17:27 Eos % (Auto) 1.3 % (1.5-5.0) L 12/26/17 17:27 Baso % (Auto) 0.5 % (0.0-3.0) 12/26/17 17:27 Gran # 4.37 (1.4-6.5) 12/26/17 17:27 Lymph # (Auto) 2.5 (1.2-3.4) 12/26/17 17:27 Bladen # (Auto) 0.6 (0.1-0.6) 12/26/17 17:27 Eos # (Auto) 0.1 (0.0-0.7) 12/26/17 17: Baso # (Auto) 0.04 K/mm3 (0.0-2.0) 12/26/17 17: Sodium 139 mmol/L (132-148) 12/28/17 06:00 Potassium 3.5 mmol/L (3.6-5.0) L 12/28/17 06:00 Chloride 107 mmol/L (98-107) 12/28/17 06:00 Carbon Dioxide 26 mmol/L (21-33) 12/28/17 06:00 Anion Gap 10 (10-20) 12/28/17 06:00 BUN 12 mg/dL (7-21) 12/28/17 06:00 Creatinine 0.5 mg/dl (0.7-1.2) L 12/28/17 06:00 Est GFR ( Amer) > 60 12/28/17 06:00 Est GFR (Non-Af Amer) > 60 12/28/17 06:00 Random Glucose 116 mg/dL (70-110) H 12/28/17 06:00 Calcium 9.2 mg/dL (8.4-10.5) 12/28/17 06:00 Phosphorus 3.8 mg/dL (2.5-4.5) 12/28/17 06:00 Magnesium 1.9 mg/dL (1.7-2.2) 12/28/17 06:00 Iron 27 ug/dL (45-180) L 12/27/17 12:00 TIBC 421 ug/dL (265-497) 12/27/17 12:00 % Saturation 6 % (20-55) L 12/27/17 12:00 Ferritin 6.7 ng/mL 12/27/17 12:00 Total Bilirubin 0.2 mg/dL (0.2-1.3) 12/28/17 06:00 AST 16 U/L (14-36) 12/28/17 06:00 ALT 13 U/L (7-56) 12/28/17 06:00 Alkaline Phosphatase 39 U/L (38-126) 12/28/17 06:00 Lactate Dehydrogenase 457 U/L (333-699) 12/26/17 17:27 Total Creatine Kinase 47 U/L (35-230) 12/26/17 17:27 Troponin I < 0.01 ng/mL 12/27/17 06:30 Total Protein 5.9 g/dL (5.8-8.3) 12/28/17 06:00 Albumin 3.5 g/dL (3.0-4.8) 12/28/17 06:00 Globulin 2.5 gm/dL 12/28/17 06:00 Albumin/Globulin Ratio 1.4 (1.1-1.8) 12/28/17 06:00 Vitamin B12 267 pg/mL (239-931) 12/27/17 12:00 Folate > 20.0 ng/mL 12/27/17 12:00 TSH 3rd Generation 2.96 mIU/mL (0.46-4.68) 12/26/17 17:23 Prolactin 21.4 ng/mL (3.0-18.9) H 12/26/17 17:27 Urine Color Yellow (YELLOW) 12/28/17 11:00 Urine Appearance Clear (CLEAR) 12/28/17 11:00 Urine pH 5.5 (4.7-8.0) 12/28/17 11:00 Ur Specific Berger 1.010 (1.005-1.035) 12/28/17 11:00 Urine Protein Negative mg/dL (<30 mg/dL) 12/28/17 11:00 Urine Glucose (UA) Negative mg/dL (NEGATIVE) 12/28/17 11:00 Urine Ketones Negative mg/dL (NEGATIVE) 12/28/17 11:00 Urine Blood Negative (NEGATIVE) 12/28/17 11:00 Urine Nitrate Negative (NEGATIVE) 12/28/17 11:00 Urine Bilirubin Negative (NEGATIVE) 12/28/17 11:00 Urine Urobilinogen 0.2 E.U./dL (<1 E.U./dL) 12/28/17 11:00 Ur Leukocyte Esterase Negative Aleksander/uL (NEGATIVE) 12/28/17 11:00 Urine RBC Negative /hpf (0-2) 12/27/17 19:35 Urine WBC 0 - 2 /hpf (0-6) 12/27/17 19:35 Ur Epithelial Cells 1 - 3 /hpf (0-5) 12/27/17 19:35 Urine Bacteria Many (NEG) 12/27/17 19:35 Urine Opiates Screen Negative (NEGATIVE) 12/26/17 19:30 Urine Methadone Screen Negative (NEGATIVE) 12/26/17 19:30 Ur Barbiturates Screen Negative (NEGATIVE) 12/26/17 19:30 Ur Phencyclidine Scrn Negative (NEGATIVE) 12/26/17 19:30 Ur Amphetamines Screen Negative (NEGATIVE) 12/26/17 19:30 U Benzodiazepines Scrn Negative (NEGATIVE) 12/26/17 19:30 U Oth Cocaine Metabols Negative (NEGATIVE) 12/26/17 19:30 U Cannabinoids Screen Negative (NEGATIVE) 12/26/17 19:30 - Hospital Course Hospital Course: 42 yo F with PMH of HLD who initially presented to the ED due multiple syncopal episodes on day of admission. Patient was seen to have multiple syncopal episodes at home by her daughter, ranging 5-30 minutes, with questionable tonic- clonic episodes, but without tongue biting or incontinence. Daughter also stated that the day prior to admission, her mother had a period where she appeared to be staring blankly for about 5 minutes. Afterwards, the patient had no recollection of the event. Pt had another syncopal episode outside of the hospital prior to arrival and another syncopal episode while the ED, though without any witnessed tonic-clonic activity. Patient herself reports only 2 episodes of transient loss of consciousness without amnesia, which have only occurred the day of admission, and started after she started fasting. Patient had also reported that she normally has very poor oral intake, and especially does not drink much water. During hospitalization, patient had an echocardiogram which was unremarkable. Patient also had noncontrast CT of the head which showed mild atrophy of the frontal sulci, CT head with contrast with 2 linear foci of enhancement in right frontal lobe, consistent with prominent draining veins or developmental venous anomalies. These studies were followed up with MRI of the brain w/wo contrast which was remarkable for sella arachnoid cyst vs empty sella. On initial exam, patient have negative orthostatic vitals, but today, repeat orthostatic vital signs examination was indeterminately positive with elevation of the heart rate by 14 BPM from supine to standing. Patient was also seen by neurology and had EEG, which did show seizure activity per neurology (Dr. Glez). Patient was started on Depakote per neurology. Patient was also noted to be anemic with iron deficiency, likely 2/2 menorrhagia, and was started on oral iron supplement. Today, patient feels well overall, and repeatedly requests to go home. Patient denies headache, chest pain, palpitations, shortness of breath, fever, chills, nausea, vomiting, diarrhea, urinary symptoms, focal weakness/numbness, confusion , vision changes, hearing loss. Patient was informed of the finding of seizure, and of her new AED regimen. She was instructed not to drive, and patient reports that she does not drive and does not have a drivers license. She was also informed of her anemia and that she would require follow up to monitor and workup further if needed. She was also instructed to follow up with Dr. Glez and her PMD. All questions were answered to her satisfaction and she was discharged to home. Discharge Exam - Head Exam Head Exam: NORMAL INSPECTION - Eye Exam Eye Exam: EOMI, Normal appearance, PERRL Pupil Exam: NORMAL ACCOMODATION - ENT Exam ENT Exam: Mucous Membranes Moist - Neck Exam Neck exam: Normal Inspection - Respiratory Exam Respiratory Exam: Clear to PA & Lateral, NORMAL BREATHING PATTERN - Cardiovascular Exam Cardiovascular Exam: RRR, +S1, +S2 - GI/Abdominal Exam GI & Abdominal Exam: Normal Bowel Sounds, Soft. absent: Tenderness - Extremities Exam Extremities exam: full ROM, normal inspection - Neurological Exam Neurological exam: Alert, CN II-XII Intact, Oriented x3 - Psychiatric Exam Psychiatric exam: Normal Affect, Normal Mood - Skin Skin Exam: Dry, Intact, Normal Color Discharge Plan - Discharge Medications Prescriptions: Divalproex [Depakote DR(*BID*)] 500 mg PO BID #60 ect Ferrous Sulfate 325 mg PO BID #60 tablet - Follow Up Plan Condition: FAIR Disposition: HOME/ ROUTINE Instructions: Syncope (Fainting), Seizures, Valproic Acid and Derivatives Additional Instructions: 1. Continue to take depakote 500mg twice daily; you may not drive until you are reevaluated by your PCP and neurologist in three months, seizure free 2. Follow up with neurology (Dr. Glez, or neurologist of your choice) within one month 3. Continue taking iron supplement, twice daily for one month, and follow up with your primary care doctor to recheck your bloodwork 4. Drink plenty of fluid, and eat plenty of green leafy vegetables 5. Rise from a lying or seated position slowly. Avoid abruptly rising from seated or lying positions 6. Follow up with your primary care doctor within one week 7. For any new or worsening concerns, contact your PCP immediately, or return to the ER Referrals: Cliff Jimenez MD [Primary Care Provider] - Андрей Glez MD [Staff Provider] - <Yuni Bhakta - Last Filed: 12/29/17 08:16> Provider - Provider Date of Admission: 12/26/17 22:15 Attending physician: Yuni Bhakta MD Primary care physician: Cliff Jimenez MD Hospital Course - Lab Results Lab Results: Most Recent Lab Values WBC 5.2 10^3/ul (4.5-11.0) 12/28/17 06:00 RBC 3.79 10^6/uL (3.5-6.1) 12/28/17 06:00 Hgb 8.9 g/dL (12.0-16.0) L 12/28/17 06:00 Hct 28.9 % (36.0-48.0) L 12/28/17 06:00 MCV 76.3 fl (80.0-105.0) L 12/28/17 06:00 MCH 23.5 pg (25.0-35.0) L 12/28/17 06:00 MCHC 30.8 g/dl (31.0-37.0) L 12/28/17 06:00 RDW 16.4 % (11.5-14.5) H 12/28/17 06:00 Plt Count 307 10^3/uL (120.0-450.0) 12/28/17 06:00 MPV 9.9 fl (7.0-11.0) 12/28/17 06:00 Gran % 57.2 % (50.0-68.0) 12/26/17 17:27 Lymph % (Auto) 32.9 % (22.0-35.0) 12/26/17 17:27 Bladen % (Auto) 8.1 % (1.0-6.0) H 12/26/17 17: Eos % (Auto) 1.3 % (1.5-5.0) L 12/26/17 17: Baso % (Auto) 0.5 % (0.0-3.0) 12/26/17 17: Gran # 4.37 (1.4-6.5) 12/26/17 17: Lymph # (Auto) 2.5 (1.2-3.4) 12/26/17 17: Bladen # (Auto) 0.6 (0.1-0.6) 12/26/17: Eos # (Auto) 0.1 (0.0-0.7) 12/26/17: Baso # (Auto) 0.04 K/mm3 (0.0-2.0) 12/26/17 17: Sodium 139 mmol/L (132-148) 12/28/17 06:00 Potassium 3.5 mmol/L (3.6-5.0) L 12/28/17 06:00 Chloride 107 mmol/L (98-107) 12/28/17 06:00 Carbon Dioxide 26 mmol/L (21-33) 12/28/17 06:00 Anion Gap 10 (10-20) 12/28/17 06:00 BUN 12 mg/dL (7-21) 12/28/17 06:00 Creatinine 0.5 mg/dl (0.7-1.2) L 12/28/17 06:00 Est GFR ( Amer) > 60 12/28/17 06:00 Est GFR (Non-Af Amer) > 60 12/28/17 06:00 Random Glucose 116 mg/dL (70-110) H 12/28/17 06:00 Calcium 9.2 mg/dL (8.4-10.5) 12/28/17 06:00 Phosphorus 3.8 mg/dL (2.5-4.5) 12/28/17 06:00 Magnesium 1.9 mg/dL (1.7-2.2) 12/28/17 06:00 Iron 27 ug/dL (45-180) L 12/27/17 12:00 TIBC 421 ug/dL (265-497) 12/27/17 12:00 % Saturation 6 % (20-55) L 12/27/17 12:00 Ferritin 6.7 ng/mL 12/27/17 12:00 Total Bilirubin 0.2 mg/dL (0.2-1.3) 12/28/17 06:00 AST 16 U/L (14-36) 12/28/17 06:00 ALT 13 U/L (7-56) 12/28/17 06:00 Alkaline Phosphatase 39 U/L (38-126) 12/28/17 06:00 Lactate Dehydrogenase 457 U/L (333-699) 12/26/17 17:27 Total Creatine Kinase 47 U/L (35-230) 12/26/17 17: Troponin I < 0.01 ng/mL 12/27/17 06:30 Total Protein 5.9 g/dL (5.8-8.3) 12/28/17 06:00 Albumin 3.5 g/dL (3.0-4.8) 12/28/17 06:00 Globulin 2.5 gm/dL 12/28/17 06:00 Albumin/Globulin Ratio 1.4 (1.1-1.8) 12/28/17 06:00 Vitamin B12 267 pg/mL (239-931) 12/27/17 12:00 Folate > 20.0 ng/mL 12/27/17 12:00 TSH 3rd Generation 2.96 mIU/mL (0.46-4.68) 12/26/17 17:23 Prolactin 21.4 ng/mL (3.0-18.9) H 12/26/17 17:27 Urine Color Yellow (YELLOW) 12/28/17 11:00 Urine Appearance Clear (CLEAR) 12/28/17 11:00 Urine pH 5.5 (4.7-8.0) 12/28/17 11:00 Ur Specific Berger 1.010 (1.005-1.035) 12/28/17 11:00 Urine Protein Negative mg/dL (<30 mg/dL) 12/28/17 11:00 Urine Glucose (UA) Negative mg/dL (NEGATIVE) 12/28/17 11:00 Urine Ketones Negative mg/dL (NEGATIVE) 12/28/17 11:00 Urine Blood Negative (NEGATIVE) 12/28/17 11:00 Urine Nitrate Negative (NEGATIVE) 12/28/17 11:00 Urine Bilirubin Negative (NEGATIVE) 12/28/17 11:00 Urine Urobilinogen 0.2 E.U./dL (<1 E.U./dL) 12/28/17 11:00 Ur Leukocyte Esterase Negative Aleksander/uL (NEGATIVE) 12/28/17 11:00 Urine RBC Negative /hpf (0-2) 12/27/17 19:35 Urine WBC 0 - 2 /hpf (0-6) 12/27/17 19:35 Ur Epithelial Cells 1 - 3 /hpf (0-5) 12/27/17 19:35 Urine Bacteria Many (NEG) 12/27/17 19:35 Urine Opiates Screen Negative (NEGATIVE) 12/26/17 19:30 Urine Methadone Screen Negative (NEGATIVE) 12/26/17 19:30 Ur Barbiturates Screen Negative (NEGATIVE) 12/26/17 19:30 Ur Phencyclidine Scrn Negative (NEGATIVE) 12/26/17 19:30 Ur Amphetamines Screen Negative (NEGATIVE) 12/26/17 19:30 U Benzodiazepines Scrn Negative (NEGATIVE) 12/26/17 19:30 U Oth Cocaine Metabols Negative (NEGATIVE) 12/26/17 19:30 U Cannabinoids Screen Negative (NEGATIVE) 12/26/17 19:30 Attending/Attestation - Attestation I have personally seen and examined this patient.: Yes I have fully participated in the care of the patient.: Yes I have reviewed all pertinent clinical information, including history, physical exam and plan: Yes Notes (Text): 12/28/17 42 year old female with past medical history of dyslipidemia who presented with complaint of recurrent syncope and possible seizures at home. She was admitted for cardiac/neuro workup which including CT head, MRI brain, echocardiogram, carotid doppler and EEG as above which was reviewed as above. As per neurology, EEG did show seizure activity and patient was started on depakote. She is to follow up with neurology as outpatient. Patient was instructed not to drive unless cleared by neurologist and patient confirmed she does not drive. She is on iron for anemia and advised to follow up with GI/gynecology as outpatient for further evaluation. Yuni Bhakta MD Hospitalist.
--- NOTE | 2017-12-28 20:44 | CON ---
DATE: 12/28/2017 INDICATION: Syncope. HISTORY OF PRESENT ILLNESS: This is a 42-year-old woman who was admitted on the because of multiple syncopal episodes, these are described in the chart. She has been observed to become unresponsive sometimes associated with abnormal movements. On waking up, she is confused and does not remember the events. A witness event in the emergency room did not show any seizure activity or arrhythmia. She has been on telemetry without any evidence of the arrhythmia. She is undergoing neurologic evaluation. There was no chest pain, shortness of breath reported. No fever, chills, sputum production or hemoptysis. No abdominal pain, nausea, vomiting, diarrhea, constipation or melena. PAST MEDICAL HISTORY: Notable for hypertension and hyperlipidemia. There is no history of cardiac problems, no prior history of seizures or syncope. MEDICATIONS AT THE TIME OF ADMISSION: Included none. ALLERGIES: THERE ARE NO MEDICATION ALLERGIES. CURRENT MEDICATIONS: Include Protonix and Zofran p.r.n. SOCIAL HISTORY: She lives at home. She does not smoke. She does not drink. She has been fasting for lent. FAMILY HISTORY: Notable for diabetes, hypertension and stroke. REVIEW OF SYSTEMS: A 10-point review of systems is otherwise unremarkable. PHYSICAL EXAMINATION GENERAL: She is a well-developed woman. VITAL SIGNS: Unremarkable. No orthostatic changes were detected. LUNGS: Lung roldan are clear. HEART: Revealed normal first and second heart sounds. ABDOMEN: Soft. Bowel sounds are present. No mass, organomegaly, tenderness, rebound or guarding. EXTREMITIES: Revealed no cyanosis, clubbing or edema. NEUROLOGIC: Awake, alert, and oriented and intact. PSYCHIATRIC: Normal as to mood and affect. SKIN: Warm and dry. No rash or cellulitis. LABORATORY AND IMAGING: A CT scan of the head reveals no acute intracranial abnormality, etc. A followup CT scan of the head is noted. Carotid artery ultrasound shows minimal carotid disease. An echocardiogram is normal. A brain MRI reveals normal signal intensity is appreciated throughout the wilkinson and white matter structures, etc. EKG demonstrates regular sinus rhythm and is within normal limits. No change from the prior EKG. White count normal; hemoglobin 10.8, repeat 8.9; hematocrit 35.5, repeat 28.9; platelet counts are normal. Chemistries are unremarkable. Magnesium is normal. LFTs are unremarkable. Three troponins are negative. B12 and folate are unremarkable. Prolactin is elevated. Urinalysis is noted. Toxic screen is negative. IMPRESSION: Robyn Todd is a 42-year-old woman with unexplained episodes of loss of consciousness, possibly seizure, being worked up by Neurology. No evidence of arrhythmia. No postural vital signs abnormalities are detected so far. Her echocardiogram is unremarkable. Her EKG is unremarkable. If no neurologic cause of the symptoms is detected, she should be considered for a tilt table testing and an implantable loop recorder. Jay Kay MD TABAT[facility]
--- NOTE | 2017-12-31 08:40 | EEG ---
DATE: 12/27/2017 This is a 16 channel electrode configured using the [employer] electrode placement system. All electrodes were referenced to A1/A2 or P1/P2 respectively. Continuous seizure monitoring was done using spike detection . There is a normal posterior dominant rhythm 8 Hz to 10 Hz, reactive, symmetric, and attenuating to eye opening. There is no sleep captured. There was normal amount of drowsiness captured. There were no subclinical or clinical seizures noted. There were present approximately 5 interictal epileptiform discharges, maximal phase of worsening at T3 with the roldan. Activation maneuvers did not produce any abnormality. IMPRESSION: This is an abnormal awake and drowsy electroencephalogram. The presence of T3 sharp waves indicate a focus of epileptiform discharge at this location. Clinical correlation is required. Jyoti Leal MD
== END 2017-12-28 18:07 | disposition home or self-care (01) ==
LOC: ED 17:08 → ERH 22:15 → INTOOBSV 22:15 → ERH 23:49 → 3RSO 12-27 01:08
PROVIDERS: ADMIT Internal Medicine; ATTEND Internal Medicine
DX: R56.9 Unspecified convulsions (principal); R55 Syncope and collapse; D50.9 Iron deficiency anemia, unspecified; N92.0 Excessive and frequent menstruation with regular cycle; E78.5 Hyperlipidemia, unspecified; I10 Essential (primary) hypertension; E78.00 Pure hypercholesterolemia, unspecified
CPT/HCPCS: 36415; 70470; 70553; 80053; 80324; 80345; 80346; 80349; 80353; 80358; 80361; 81001; 81003; 82550; 82607; 82728; 82746; 83540; 83550; 83615; 83735; 83992; 84100; 84146; 84443; 84484; 85025; 85027; 87040; 93005; 93306; 93880; 95812; 97116; 97162; 97530; 99285; A9579; G0378; G8978; G8979; J7040; Q9967